=== PATIENT | female | born 1980 | race Caucasian/White ===

== ENCOUNTER 2017-09-19 17:09 | Inpatient (IN) | payer MEDICAID ==
[~2017-09-19] VITALS: Wt 72.0 kg
[~2017-09-19 17:09] MED LIST: KETAMINE 500 MG INJ ONE; PROPOFOL 200 MG INJ ONE
[2017-09-19] MEDS ORDERED: METHYLPREDNISOLONE 125 MG INJ IV STA (17:22)
[2017-09-19] MEDS ORDERED: DIPHENHYDRAMINE 50 MG INJ IV STA (17:22)
[2017-09-19] MEDS ORDERED: EPINEPHrine 1 MG INJ IM STA (17:22)
[2017-09-19] MEDS ORDERED: RACEPINEPHRINE 2.25%(NEB) 0.5 ML AMP ONE (17:24)
[2017-09-19] MEDS ORDERED: LIDOCAINE 4% (MPF) 5 ML INJ MT PRN (17:30)
[2017-09-19] MEDS ORDERED: FAMOTIDINE 20 MG INJ IV ONE (17:30)
[2017-09-19] MEDS ORDERED: RACEPINEPHRINE 2.25%(NEB) 0.5 ML AMP HHN ONE (17:30)
[2017-09-19] MEDS ORDERED: SOD CHLORIDE 0.9% 250 ML IV ONE (17:31)
[2017-09-19 17:37] LABS: BASOPHILS % 0.3 % (0.0-2.0); EOSINOPHILS # 0.2 10^3/ul (0.0-0.5); EOSINOPHILS % 1.1 % (0.0-7.0); HEMATOCRIT 42.1 % (37.0-47.0); HEMOGLOBIN 14.8 g/dl (12.0-16.0); LYMPHOCYTES # 4.5 10^3/ul (0.8-2.9); LYMPHOCYTES % 31.9 % (15.0-51.0); MEAN CORPUSCULAR HEMOGLOBIN 30.1 pg (29.0-33.0); MEAN CORPUSCULAR HGB CONC 35.2 g/dl (32.0-37.0); MEAN CORPUSCULAR VOLUME 85.7 fl (82.0-101.0); MEAN PLATELET VOLUME 10.2 fl (7.4-10.4); MONOCYTE # 0.8 10^3/ul (0.3-0.9); MONOCYTES % 5.9 % (0.0-11.0); NEUTROPHIL # 8.6 10^3/ul (1.6-7.5); NEUTROPHILS % 60.6 % (39.0-77.0); PLATELET COUNT 254 10^3/UL (140-415); RED BLOOD COUNT 4.91 10^6/ul (4.20-5.40); RED CELL DISTRIBUTION WIDTH 11.7 % (11.5-14.5); WHITE BLOOD COUNT 14.2 10^3/ul (4.8-10.8)
[2017-09-19] MEDS ORDERED: PROPOFOL 100 ML ONE (17:47)
[2017-09-19] MEDS ORDERED: LORAZEPAM 2 MG INJ ONE (17:50)
[2017-09-19] MEDS ORDERED: MIDAZOLAM (DRIP) 50 mg/50 mL 50 ML IV STA (17:58)
[2017-09-19] MEDS ORDERED: PROPOFOL 100 ML IV STA (17:58)
[2017-09-19] MEDS ORDERED: NALOXONE (0.4 MG/ML) INJ IV ONE (18:00)
[2017-09-19] MEDS ORDERED: LIDOCAINE 2% (MDV) 20 ML INJ INJ ONE (18:00)
[2017-09-19] MEDS ORDERED: FENTAnyl 50 MCG/ML VIAL IV ONE (18:00)
[2017-09-19] MEDS ORDERED: MIDAZOLAM 1 MG/ML 5 ML INJ IV ONE (18:00)
[2017-09-19 18:02] LABS: ANION GAP 16 (8-16); BLOOD UREA NITROGEN 12 mg/dl (7-20); CALCIUM 9.3 mg/dl (8.4-10.2); CARBON DIOXIDE 24 mmol/L (21-31); CHLORIDE 107 mmol/L (97-110); CREATININE 0.92 mg/dl (0.44-1.00); GLUCOSE 107 mg/dl (70-220); SODIUM 144 mmol/L (135-144)
[2017-09-19 18:16] LABS: TROPONIN-I < 0.012 ng/ml (0.00-0.12)
--- NOTE | 2017-09-19 18:19 | RADRPT ---
PROCEDURE: XR Chest. CLINICAL INDICATION: Chest pain. TECHNIQUE: Single frontal view. COMPARISON: None. FINDINGS: The endotracheal tube is in satisfactory position with the tip 3 cm above the luis. There is mild left basilar atelectasis. The lungs are otherwise clear. The heart size is normal. There is no pleural effusion. There is no pneumothorax. IMPRESSION: 1. Endotracheal tube in satisfactory position. 2. Left basilar atelectasis. 3. Otherwise normal chest x-ray. RPTAT: QQ .Mark Beal MD, MD Date Time Electronically viewed and signed by .Mark Beal MD, on 09/19/2017 18:19 .R/
--- NOTE | 2017-09-19 19:13 | ERD ---
ER Documentation Chief Complaint Chief Complaint SUDDEN ONSET SWELLING OF TONGUE AND STRIDOR AND EXCESSIVE DROOLING. HPI This is a 36-year-old female who presents to the emergency room for evaluation of tongue swelling, shortness of breath and drooling. This patient is unable to give a detailed history secondary to her clinical condition at this time. According to the patient's who is with her this patient has had this happen in the past and has had relief with steroids. The patient denies being on any LIA inhibitors at this time. This patient again cannot give a detailed history secondary to her distress. ROS All systems reviewed and are negative except as per history of present illness. Allergies Allergies: Coded Allergies: aspirin (Verified Allergy, rash, 09/13/13) Uncoded Allergies: NOVACAINE (Allergy, rash, 09/13/13) PMhx/Soc History of Surgery: Yes (oral surgery and bone replacement ) Anesthesia Reaction: No Hx Neurological Disorder: No Hx Respiratory Disorders: No Hx Cardiac Disorders: No Hx Psychiatric Problems: No Hx Miscellaneous Medical Probl: Yes (allergic rxn x 2 to unk meds ) Hx Alcohol Use: No Hx Substance Use: No Hx Tobacco Use: No Smoking Status: Never smoker Physical Exam Vitals Vital Signs Date Time Temp Pulse Resp B/P Pulse Ox O2 Delivery O2 Flow Rate FiO2 09/19/17 18:15 90 16 103/66 100 Mechanical Ventilator 09/19/17 18:00 84 16 92/75 100 Mechanical Ventilator 09/19/17 17:45 94 18 163/98 100 High Flow 10.0 09/19/17 17:45 87 16 100 100 09/19/17 17:35 96 20 149/98 100 High Flow 10.0 09/19/17 17:25 102 20 180/167 100 High Flow 10.0 09/19/17 17:20 Non Rebreather 10 09/19/17 17:20 97.0 101 20 152/105 100 Physical Exam INITIAL VITAL SIGNS: Reviewed by me, appears to be in severe distress, posturing , drooling HEENT: Severe macroglossia, unable to visualize oropharynx, pupils equal, round , and reactive to light. EOMI. There is no scleral icterus. NECK: C-spine is soft and supple, there is no meningismus. There is no cervical lymphadenopathy. LUNGS: Clear to auscultation bilaterally. There are no rales, wheezes or rhonchi. HEART: Tachycardic, no murmurs, clicks, rubs or gallops. ABDOMEN: Soft, non-tender, non-distended. There are bowel sounds in all four quadrants. No rebound or guarding. EXTREMITIES: There is no peripheral cyanosis or edema. No focal swelling or erythema. NEUROLOGICAL: The patient moves all four extremities with 5/5 strength. Cranial nerves II - XII are intact. Normal gait. Alert and oriented SKIN: There is no apparent rash or petechiae. HEME/LYMPHATIC: There is no evidence of excessive bruising or lymphedema. PSYCHIATRIC: The patient does not appear anxious or depressed. Result Diagram: 09/19/17172909/19/171729 Results 24 hrs Laboratory Tests Test 09/19/17 17:30 White Blood Count 14.210^3/ul Red Blood Count 4.9110^6/ul Hemoglobin 14.8g/dl Hematocrit 42.1% Mean Corpuscular Volume 85.7fl Mean Corpuscular Hemoglobin 30.1pg Mean Corpuscular Hemoglobin Concent 35.2g/dl Red Cell Distribution Width 11.7% Platelet Count 83195^3/UL Mean Platelet Volume 10.2fl Neutrophils % 60.6% Lymphocytes % 31.9% Monocytes % 5.9% Eosinophils % 1.1% Basophils % 0.3% Nucleated Red Blood Cells % 0.0/100WBC Neutrophils # 8.610^3/ul Lymphocytes # 4.510^3/ul Monocytes # 0.810^3/ul Eosinophils # 0.210^3/ul Basophils # 0.010^3/ul Nucleated Red Blood Cells # 0.010^3/ul Sodium Level 144mmol/L Potassium Level 3.0mmol/L Chloride Level 107mmol/L Carbon Dioxide Level 24mmol/L Anion Gap 16 Blood Urea Nitrogen 12mg/dl Creatinine 0.92mg/dl Glucose Level 107mg/dl Calcium Level 9.3mg/dl Troponin I < 0.012ng/ml Current Medications Medications (Trade) Dose Ordered Sig/Judy Route PRN Reason Start Time Stop Time Status Last Admin Dose Admin Famotidine (Pepcid Iv) 20 mg ONCE ONCE IV 09/19/17 17:30 09/19/17 17:31 DC 09/19/17 18:19 Diphenhydramine HCl (Benadryl) 25 mg ONCE STAT IV 09/19/17 17:22 09/19/17 17:23 DC 09/19/17 17:22 Epinephrine (EPINEPHrine) 0.3 mg ONCE STAT IM 09/19/17 17:22 09/19/17 17:23 DC 09/19/17 17:22 Methylprednisolone Sodium Succinate (Solu-Medrol) 125 mg ONCE STAT IV 09/19/17 17:22 09/19/17 17:23 DC 09/19/17 17:22 Epinephrine (Racepinephrine 2.25% (Neb)) 0.5 ml ONCE ONCE HHN 09/19/17 17:30 09/19/17 17:31 DC 09/19/17 18:22 Epinephrine (Racepinephrine 2.25% (Neb)) 0.5 ml STK-MED ONCE .ROUTE 09/19/17 17:24 09/19/17 17:25 DC Lidocaine 5 ml 5 ml PRN PRN MT OTHER 09/19/17 17:30 Sodium Chloride (NS) 250 ml @ 0 mls/hr Q0M ONCE IV 09/19/17 17:31 09/19/17 17:33 DC Midazolam HCl (Versed) 5 mg ONCE ONCE IV 09/19/17 18:00 09/19/17 18:01 DC 09/19/17 18:00 Naloxone HCl (Narcan) 0.4 mg ONCE ONCE IV 09/19/17 18:00 09/19/17 18:01 DC Fentanyl (Sublimaze) 100 mcg ONCE ONCE IV 09/19/17 18:00 09/19/17 18:01 DC 09/19/17 17:40 Lidocaine 20 ml 20 ml ONCE ONCE INJ 09/19/17 18:00 09/19/17 18:01 DC Propofol (Diprivan) 100 ml @ ud STK-MED ONCE .ROUTE 09/19/17 17:47 09/19/17 17:48 DC Lorazepam 2 mg 2 mg STK-MED ONCE .ROUTE 09/19/17 17:50 09/19/17 17:51 DC Propofol 100 ml @ 2.16 mls/hr ONCE STAT IV 09/19/17 17:58 09/21/17 16:15 09/19/17 18:17 Midazolam HCl (Versed) 50 ml @ 3 mls/hr ONCE STAT IV 09/19/17 17:58 09/20/17 10:37 09/19/17 17:58 Procedures/MDM Chest X-ray 1V Interpreted by me: Soft Tissue: No acute abnormalities Bones: No acute abnormalities Mediastinum/Cardiac Silhouette/Lungs: ET tube in place] EKG: Rate/Rhythm: [Normal Sinus Rhythm] QRS, ST, T-waves: [No changes consistent w/ acute ischemia] Impression: [No evidence of ischemia or arrhythmia] This 36-year-old female presents to the emergency room for evaluation of tongue swelling. When I evaluated this patient she was in severe distress, she was posturing, she was drooling. I immediately paged for anesthesiology overhead. The patient was given 0.3 mg intramuscular of epinephrine, she was given a Medrol, Pepcid, Benadryl. Anesthesiology is at bedside and wanted ENT to be consulted at bedside as well prior to fiberoptic intubation. I did call ENT Dr. Amador who was visiting the procedure. I then called pediatric ENT Dr. Gonzalez who agreed to come into the emergency room. Prior to the arrival of Dr. Gonzalez I did speak with Dr. SAE Mcdonough who is our general surgeon on-call and he agreed to be at bedside for emergent cricothyroidotomy if needed. This patient was intubated easily by anesthesia. She was then sedated with propofol and Versed. The patient will be given FFP at this time however given her critical condition she will be placed in the intensive care unit. Dr. Gonzalez did show up at bedside after this patient was intubated and he is aware of this patient. Critical Care: Excluding all billable procedures Time: 64 minutes Treatments/Evaluations: Close monitoring and treatment of unstable vital signs, cardiorespiratory, and neurologic status, while maintaining tight balance of fluid, respiratory, and cardiac interventions. Departure Diagnosis: Primary Impression: Angioedema Additional Impressions: Acute respiratory failure Acute anaphylaxis Shortness of breath Condition: Critical STEFFANY BARAHONA DO Sep 19, 2017 19:13
[2017-09-19 19:14] LABS: AADO2 Arterial 259.6 mmHg (7.0-24.0); Allen Test ACCEPTAB; Arterial Base Excess -4.2 mmol/L (-3.0-3); Arterial COHb 0.3 % (0.0-3.0); Arterial Fraction of Oxyhgb 98.4 % (93.0-99.0); Arterial HCO3 20.5 mmol/L (22.0-26.0); Arterial MetHb 0.4 % (0.0-1.5); MODE VENT - AC
--- NOTE | 2017-09-19 19:21 | HP ---
Date/Time of Note Date/Time of Note DATE: 09/19/17 TIME: 19:16 Assessment/Plan VTE Prophylaxis VTE Prophylaxis Intervention: SCD's Lines/Catheters IV Catheter Type (from Nrsg): Saline Lock Assessment/Plan Assessment/Plan 36 yo F with previous episodes of angioedema presented with severe angioedema requiring emergency intubation for airway protection. No evidence of anaphylactic shock as BP ok PLAN -admit to ICU as pt still intubated -cont steroids, H1 randy and H2 randy therapy started by the ER -check c4 level as none on file, check c1 and c1q as well -as pt not on acei at home, no compelling indication for consideration of bradykinin inhibitor Critical care time: 45 minutes HPI/ROS Admit Date/Time Admit Date/Time Hx of Present Illness CC: tongue swelling (of note, pt already intubated and sedated at time of my eval thus all info from chart) HPI 36 yo F with hx of previous episodes of angioedema presented with tongue swelling/angioedema. It progressed so quickly in the ER that pt required fiberoptic nasal intubation. unable to obtain additional pmhx/pshx/soc hx/fam hx/meds/all/ros from pt PMH/Family/Social Social History Smoking Status: Never smoker Exam/Review of Systems Vital Signs Vitals Vital Signs Date Time Temp Pulse Resp B/P Pulse Ox O2 Delivery O2 Flow Rate FiO2 09/19/17 18:30 87 20 108/66 99 Mechanical Ventilator 09/19/17 17:45 10.0 09/19/17 17:45 100 09/19/17 17:20 97.0 Exam Exam laying in bed, nasally intubated mmm marked tongue swelling noted no mrg lungs clear abd soft no rashes/hives/urticaria noted no edema labs and imaging reviewed Labs Result Diagram: 09/19/17 1730 09/19/17 1730 Medications Medications Current Medications Lidocaine (Xylocaine 4% (Mpf)) 5 ml PRN PRN MT OTHER; Start 09/19/17 at 17:30 ASHLEY SALINAS MD Sep 19, 2017 19:20
[2017-09-19] MEDS ORDERED: morphine 2 MG INJ IV PRN (19:30)
[2017-09-19] MEDS ORDERED: ALBUTEROL 18 GM INHALER INH PRN (19:30)
[2017-09-19] MEDS ORDERED: IPRATROPIUM (HFA) 12.9 GM INHALER INH PRN (19:30)
[2017-09-19] MEDS ORDERED: ACETAMINOPHEN 650MG/20.3ML CUP PO PRN (19:30)
[2017-09-19] MEDS ORDERED: DIPHENHYDRAMINE 50 MG INJ IV SCH (19:30)
[2017-09-19] MEDS ORDERED: HYDROCODONE/APAP (5/325) TAB PO PRN (19:30)
[2017-09-19] MEDS: DIPHENHYDRAMINE 50 MG INJ IV SCH (19:59)
[2017-09-19] MEDS: FAMOTIDINE 20 MG INJ IV SCH (19:59)
[2017-09-19] MEDS: METHYLPREDNISOLONE 125 MG INJ IV SCH (19:59)
[2017-09-19] MEDS ORDERED: SIMV10TA PO (20:32)
[2017-09-19] MEDS ORDERED: LISI10TA2 PO (20:32)
[2017-09-19] MEDS ORDERED: FAMOTIDINE 20 MG TAB PO SCH (21:00)
[2017-09-19 22:25] LABS: CK-MB 0.32 ng/ml (0.0-2.4); TROPONIN-I 0.036 ng/ml (0.00-0.12)
[2017-09-20] VITALS (54 sets, daily range): BP systolic 95–170; BP diastolic 57–137; PULSE 51–96; RESP 12–21; TEMP 97
[2017-09-20] MEDS: DIPHENHYDRAMINE 50 MG INJ IV SCH ×4 (02:46→20:16)
[2017-09-20] MEDS: METHYLPREDNISOLONE 125 MG INJ IV SCH ×3 (02:47→20:15)
[2017-09-20] MEDS: MIDAZOLAM (DRIP) 50 mg/50 mL 50 ML IV SCH ×2 (04:52→10:12)
[2017-09-20] MEDS: LORAZEPAM 2 MG INJ IV PRN ×2 (04:52→19:41)
[2017-09-20 06:42] LABS: ABNORMAL IP MESSAGE 1; BASOPHILS % 0.1 % (0.0-2.0); EOSINOPHILS % 0.1 % (0.0-7.0); HEMATOCRIT 38.9 % (37.0-47.0); HEMOGLOBIN 13.3 g/dl (12.0-16.0); LYMPHOCYTES # 0.6 10^3/ul (0.8-2.9); LYMPHOCYTES % 5.8 % (15.0-51.0); MEAN CORPUSCULAR HEMOGLOBIN 30.5 pg (29.0-33.0); MEAN CORPUSCULAR HGB CONC 34.2 g/dl (32.0-37.0); MEAN CORPUSCULAR VOLUME 89.2 fl (82.0-101.0); MONOCYTE # 0.1 10^3/ul (0.3-0.9); MONOCYTES % 0.5 % (0.0-11.0); NEUTROPHIL # 9.3 10^3/ul (1.6-7.5); NEUTROPHILS % 93.1 % (39.0-77.0); RED BLOOD COUNT 4.36 10^6/ul (4.20-5.40); RED CELL DISTRIBUTION WIDTH 11.9 % (11.5-14.5)
[2017-09-20 06:45] LABS: PLATELET COUNT 167 10^3/UL (140-415); POSITIVE DIFF @See below
[2017-09-20 07:20] LABS: CK-MB 0.57 ng/ml (0.0-2.4); TROPONIN-I 0.034 ng/ml (0.00-0.12)
[2017-09-20] MEDS: PROPOFOL 100 ML IV SCH ×4 (07:27→23:58)
[2017-09-20] MEDS ORDERED: POTASSIUM CHLORIDE 250 ML IVPB ONE (08:30)
[2017-09-20] MEDS: FAMOTIDINE 20 MG INJ IV SCH ×2 (09:53→20:17)
[2017-09-20] MEDS: ENOXAPARIN 40 MG/0.4 ML SYG SC SCH (09:56)
[2017-09-20 10:11] LABS: COMPLEMENT C3 113 mg/dl (88-165); COMPLEMENT C4 25 mg/dl (14-44)
--- NOTE | 2017-09-20 11:19 | PN ---
Date/Time of Note Date/Time of Note DATE: 09/20/17 TIME: :17 Assessment/Plan VTE Prophylaxis VTE Prophylaxis Intervention: SCD's Lines/Catheters IV Catheter Type (from Nrsg): Peripheral IV Urinary Cath still in place: Yes Reason Cath still needed: other (indicate) (critically ill) Assessment/Plan Assessment/Plan 36 yo F with previous episodes of angioedema presented with severe angioedema requiring emergency intubation for airway protection. Remains intubated in the ICU PLAN -extubation as per pulm -cont steroids, H1 randy and H2 randy therapy started by the ER -c4 level wnl check c1 and c1q as well -as pt not on acei at home, no compelling indication for consideration of bradykinin inhibitor -correction to H and P. Concern this episode was triggered by NSAID v PCN agent critical care time: 30 minutes Subjective 24 Hr Interval Summary Free Text/Dictation tongue less swollen Exam/Review of Systems Vital Signs Vitals Vital Signs Date Time Temp Pulse Resp B/P Pulse Ox O2 Delivery O2 Flow Rate FiO2 09/20/17 10:30 84 19 157/81 100 Mechanical Ventilator 09/20/17 09:31 40 09/20/17 08:00 97.5 09/20/17 00:13 10.0 Intake and Output 09/19/17 09/19/17 09/20/17 15:00 23:00 07:00 Intake Total 350 ml 149.76 ml Output Total 1300 ml Balance 350 ml -1150.24 ml Exam intubated and sedated tongue less swollen no mrg lungs clear abd soft no rashes/urticaria Results Result Diagram: 09/20/17 0515 09/19/17 7090 Results 24 hrs Laboratory Tests Test 09/19/17 17:30 09/19/17 19:05 09/19/17 20:00 09/20/17 05:15 White Blood Count 14.2 H 10.0 # Red Blood Count 4.91 4.36 Hemoglobin 14.8 13.3 Hematocrit 42.1 38.9 Mean Corpuscular Volume 85.7 89.2 Mean Corpuscular Hemoglobin 30.1 30.5 Mean Corpuscular Hemoglobin Concent 35.2 34.2 Red Cell Distribution Width 11.7 11.9 Platelet Count 254 167 # Mean Platelet Volume 10.2 11.0 H Neutrophils % 60.6 93.1 H Lymphocytes % 31.9 5.8 L Monocytes % 5.9 0.5 Eosinophils % 1.1 0.1 Basophils % 0.3 0.1 Nucleated Red Blood Cells % 0.0 0.0 Neutrophils # 8.6 H 9.3 H Lymphocytes # 4.5 H 0.6 L Monocytes # 0.8 0.1 L Eosinophils # 0.2 0.0 Basophils # 0.0 0.0 Nucleated Red Blood Cells # 0.0 0.0 Sodium Level 144 Potassium Level 3.0 L Chloride Level 107 Carbon Dioxide Level 24 Anion Gap 16 Blood Urea Nitrogen 12 Creatinine 0.92 Glucose Level 107 Calcium Level 9.3 Troponin I < 0.012 0.036 0.034 Blood Gas Specimen Source Blood arterial Arterial Blood Date Drawn 09/19/2017 7:00:17 PM Arterial Blood pH (Temp corrected) 7.366 Arterial Blood pCO2 (Temp correct) 36.6 Arterial Blood pO2 (Temp corrected) 416.8 H Arterial Blood HCO3 20.5 L Arterial Blood Base Excess -4.2 L Arterial Blood Oxygen Saturation 99.1 H Domingo Test ACCEPTAB Arterial Blood Gas Puncture Site Right Radial Arterial Blood Carboxyhemoglobin 0.3 Arterial Blood Methemoglobin 0.4 Blood Gas A-a O2 Differential 259.6 H Oxyhemoglobin Percent 98.4 Total Hemoglobin 14.0 Blood Gas Temperature 37.0 Blood Gas Respiration Rate 16.0 Blood Gas Actual Respiration Rate 19 Blood Gas Modality VENT - AC FiO2 100.0 Blood Gas Tidal Volume 450.0 Blood Gas Low PEEP Setting 5.0 Blood Gas Notified Whom MA Blood Gas Notified Time 09/19/2017 7:13:53 PM Creatine Kinase 71 85 Creatine Kinase Index 0.5 0.7 Creatinine Kinase MB (Mass) 0.32 0.57 Test 09/20/17 05:16 Complement C3 113 Complement C4 25 Medications Medications Current Medications Lidocaine (Xylocaine 4% (Mpf)) 5 ml PRN PRN MT OTHER; Start 09/19/17 at 17:30 Acetaminophen (Tylenol Liquid) 650 mg Q6H PRN PO PAIN LEVEL 1-3 OR FEVER; Start 09/19/17 at 19:30 Acetaminophen/ Hydrocodone Bitart ([place] (5/325)) 1 tab Q6H PRN PO PAIN LEVEL 4 -6; Start 09/19/17 at 19:30 Morphine Sulfate (morphine) 2 mg Q4H PRN IV PAIN LEVEL 7-10; Start 09/19/17 at 19:30 Enoxaparin Sodium (Lovenox) 40 mg DAILY SC Last administered on 09/20/17 09: 56; Admin Dose 40 MG; Start 09/20/17 at 09:00 Methylprednisolone Sodium Succinate (Solu-Medrol) 80 mg Q8H IV Last administered on 09/20/17 02:47; Admin Dose 80 MG; Start 09/19/17 at 19:30 Famotidine (Pepcid Iv) 20 mg Q12H IV Last administered on 09/20/17 09:53; Admin Dose 20 MG; Start 09/19/17 at 19:30 Diphenhydramine HCl (Benadryl) 25 mg Q6H IV Last administered on 09/20/17 09: 53; Admin Dose 25 MG; Start 09/19/17 at 19:30 Lorazepam 2 mg 2 mg Q4H PRN IV Agitation Last administered on 09/20/17 04:52 ; Admin Dose 2 MG; Start 09/20/17 at 03:00 Potassium Chloride (KCl 40 MEQ/250 ML NS) 250 ml @ 62.5 mls/hr ONCE ONCE IVPB Last administered on 09/20/17 09:54; Admin Dose 62.5 MLS/HR; Start at 08:30; Stop 09/20/17 at 12:29 ASHLEY SALINAS MD Sep 20, 2017 11:19
[2017-09-20] MEDS ORDERED: FENTAnyl (DRIP) 1000 mcg/100mL 100 ML IV SCH (15:00)
[2017-09-21] VITALS (36 sets, daily range): BP systolic 100–142; BP diastolic 57–104; PULSE 43–95; RESP 10–24
[2017-09-21] MEDS: DIPHENHYDRAMINE 50 MG INJ IV SCH ×4 (01:39→18:40)
[2017-09-21] MEDS: PROPOFOL 100 ML IV SCH ×2 (03:48→11:55)
[2017-09-21] MEDS: METHYLPREDNISOLONE 125 MG INJ IV SCH ×3 (03:50→18:40)
--- NOTE | 2017-09-21 04:41 | CONS ---
DATE OF ADMISSION: 09/19/2017 DATE OF CONSULTATION: 09/20/2017 PULMONARY CONSULTATION PRIMARY PHYSICIAN: Dr. Saxena REASON FOR CONSULTATION: Respiratory failure. HISTORY OF PRESENT ILLNESS: Briefly, this is a 36-year-old female with a history of prior episodes of angioedema without a clear etiology, who presented last night to the emergency department with to ngue swelling, shortness of breath and drooling. At that point, in view of her respiratory distress associated with her upper airway edema, patient underwent nasotracheal intubation and was provided systemic steroids, H1 and H2 blockers, fresh frozen plasma and sedated on mechanical ventilation and transferred to the ICU. Today, she remains on the ventilator and on sedation. PAST MEDICAL HISTORY: As stated above. ALLERGIES: UNCLEAR IF SHE HAS A HISTORY OF ALLERGY TO NONSTEROIDALS OR PENICILLIN. SOCIAL HISTORY: No tobacco, alcohol or illicit drug use. FAMILY HISTORY: Noncontributory. REVIEW OF SYSTEMS: Unable to obtain. PHYSICAL EXAMINATION: VITAL SIGNS: Heart rate is 85, blood pressure 157/81, oxygen saturation 100% on 30% FIO2 on the stefan tilator. HEENT: There appears to be some lip and tongue swelling noted on examination, although ET tube make s complete examination of the oropharynx somewhat difficult. NECK: Supple. No thyromegaly. CARDIOVASCULAR: Regular rate and rhythm, S1, S2. No murmurs, rubs or gallops. LUNGS: Clear to auscultation. ABDOMEN: Soft, nontender. No hepatosplenomegaly. EXTREMITIES: No cyanosis, clubbing or edema. SKIN: There is no evidence of any urticaria or rashes noted. LABORATORY DATA: ABG: pH 7.37, PaCO2 is 37, pO2 is 417, BUN is 12, creatinine is 0.72. Troponin i s negative. C3 level is 113. C4 level is 25. Chest x-ray is within normal limits. IMPRESSION: Respiratory failure secondary to severe angioedema. The etiology of her angioedema is somewhat unclear as to whether this represents histamine mediated response versus one that is mast c ell mediated. Obviously, acquired C1 inhibitor deficiency may also be considered, although more com mon in older individuals. RECOMMENDATIONS: 1. Ventilatory support for now. 2. We will assess cuff leak test on a daily basis, as well as examination of the oropharynx to dete rmine candidacy for weaning and extubation. 3. Obtain CRP and sed rate. The normal C4 levels argue somewhat against an acquired C1 inhibitor d eficiency. 4. Would continue H1 and H2 blockers and corticosteroids for the time being. 5. The patient has already received fresh frozen plasma and there is no obvious evidence of C1 inhi bitor deficiency at this time. 6. DVT and gastrointestinal prophylaxis. Dictated By: MYRNA RAE MD NK/NTS Conf#: [id number] DID#: [id number] CC: ASHLEY SAXENA MD; MARIELA DENNISON MD;*[facility]*
[2017-09-21 06:08] LABS: BASOPHILS % 0.1 % (0.0-2.0); HEMATOCRIT 36.2 % (37.0-47.0); HEMOGLOBIN 12.3 g/dl (12.0-16.0); LYMPHOCYTES # 0.7 10^3/ul (0.8-2.9); LYMPHOCYTES % 3.8 % (15.0-51.0); MEAN CORPUSCULAR HEMOGLOBIN 30.1 pg (29.0-33.0); MEAN CORPUSCULAR VOLUME 88.7 fl (82.0-101.0); MONOCYTE # 0.7 10^3/ul (0.3-0.9); MONOCYTES % 3.9 % (0.0-11.0); NEUTROPHIL # 15.9 10^3/ul (1.6-7.5); NEUTROPHILS % 91.6 % (39.0-77.0); PLATELET COUNT 229 10^3/UL (140-415); RED BLOOD COUNT 4.08 10^6/ul (4.20-5.40); RED CELL DISTRIBUTION WIDTH 12.1 % (11.5-14.5); WHITE BLOOD COUNT 17.3 10^3/ul (4.8-10.8)
[2017-09-21 06:25] LABS: ALBUMIN 3.7 g/dl (3.3-4.9); ALBUMIN/GLOBULIN RATIO 1.19; BILIRUBIN,INDIRECT 0.1 mg/dl (0-1.1); BILIRUBIN,TOTAL 0.1 mg/dl (0.2-1.3); C-REACTIVE PROTEIN 1.1 mg/dl (0.0-0.9); CALCIUM 8.6 mg/dl (8.4-10.2); CREATININE 0.77 mg/dl (0.44-1.00); TOTAL PROTEIN 6.8 g/dl (6.1-8.1)
[2017-09-21 06:41] LABS: Allen Test ACCEPTAB; Arterial Base Excess 0.5 mmol/L (-3.0-3); Arterial COHb 0.1 % (0.0-3.0); Arterial Fraction of Oxyhgb 97.5 % (93.0-99.0); Arterial HCO3 24.5 mmol/L (22.0-26.0); Arterial MetHb 0.3 % (0.0-1.5); Arterial Total Hemglobin 13.1 g/dl (12.0-18.0); MODE VENT - AC
[2017-09-21] MEDS: FAMOTIDINE 20 MG INJ IV SCH ×2 (07:05→18:40)
--- NOTE | 2017-09-21 07:09 | RADRPT ---
PROCEDURE: XR Chest. CLINICAL INDICATION: Shortness of breath. TECHNIQUE: Single frontal view. COMPARISON: 09/19/2017. FINDINGS: The endotracheal tube should be advanced approximately 2 cm as the tip is at the level of the upper clavicle heads and 5 cm above the luis. There is left basilar atelectasis, unchanged. The lungs ar e otherwise clear. The heart size is normal. There is no pleural effusion. There is no pneumothorax. IMPRESSION: 1. Endotracheal tube should be advanced approximately 2 cm. 2. Left basilar atelectasis. 3. Otherwise unremarkable chest radiograph. RPTAT: QQ .Mark Beal MD, MD Date Time Electronically viewed and signed by .Mark Beal MD, MD on 09/21/2017 07:09 .R/
[2017-09-21] MEDS: LORAZEPAM 2 MG INJ IV PRN (08:53)
[2017-09-21] MEDS: ENOXAPARIN 40 MG/0.4 ML SYG SC SCH (09:00)
--- NOTE | 2017-09-21 13:51 | PN ---
Date/Time of Note Date/Time of Note DATE: 09/21/17 TIME: 13:50 Assessment/Plan VTE Prophylaxis VTE Prophylaxis Intervention: SCD's Lines/Catheters IV Catheter Type (from Nrsg): Peripheral IV Urinary Cath still in place: Yes Reason Cath still needed: other (indicate) (critically ill) Assessment/Plan Assessment/Plan 36 yo F with previous episodes of angioedema presented with severe angioedema requiring emergency intubation for airway protection. Remains intubated in the ICU PLAN -extubation as per pulm -cont steroids, H1 randy and H2 randy therapy started by the ER -c4 level wn; c1 and c1 in process -as pt not on acei at home, no compelling indication for consideration of bradykinin inhibitor -Re etio, given recent meds hx as outpatient, Concern this episode was triggered by NSAID v PCN agent critical care time: 30 minutes Subjective 24 Hr Interval Summary Free Text/Dictation tongue swelling continues to improve Exam/Review of Systems Vital Signs Vitals Vital Signs Date Time Temp Pulse Resp B/P Pulse Ox O2 Delivery O2 Flow Rate FiO2 09/21/17 12:00 98.3 47 14 103/77 100 Mechanical Ventilator 09/21/17 11:30 30 09/20/17 00:13 10.0 Intake and Output 09/20/17 09/20/17 09/21/17 15:00 23:00 07:00 Intake Total 479.16 ml 144.35 ml 209.5 ml Output Total 1050 ml 295 ml 320 ml Balance -570.84 ml -150.65 ml -110.5 ml Exam tongue less swollen, still nasally intubated no mrg lungs clear abd soft no rashes Results Result Diagram: 09/21/17 0458 09/21/17 0458 Results 24 hrs Laboratory Tests Test 09/21/17 04:58 09/21/17 05:00 White Blood Count 17.3 #H Red Blood Count 4.08 L Hemoglobin 12.3 Hematocrit 36.2 L Mean Corpuscular Volume 88.7 Mean Corpuscular Hemoglobin 30.1 Mean Corpuscular Hemoglobin Concent 34.0 Red Cell Distribution Width 12.1 Platelet Count 229 # Mean Platelet Volume 11.0 H Neutrophils % 91.6 H Lymphocytes % 3.8 L Monocytes % 3.9 Eosinophils % 0.0 Basophils % 0.1 Nucleated Red Blood Cells % 0.0 Neutrophils # 15.9 H Lymphocytes # 0.7 L Monocytes # 0.7 Eosinophils # 0.0 Basophils # 0.0 Nucleated Red Blood Cells # 0.0 Erythrocyte Sedimentation Rate 9 Sodium Level 145 H Potassium Level 4.0 Chloride Level 112 H Carbon Dioxide Level 24 Anion Gap 13 Blood Urea Nitrogen 17 Creatinine 0.77 Glucose Level 127 Lactic Acid Level 1.4 Calcium Level 8.6 Total Bilirubin 0.1 L Direct Bilirubin 0.00 Indirect Bilirubin 0.1 Aspartate Amino Transf (AST/SGOT) 16 Alanine Aminotransferase (ALT/SGPT) 30 Alkaline Phosphatase 55 C-Reactive Protein 1.1 H Total Protein 6.8 Albumin 3.7 Globulin 3.10 Albumin/Globulin Ratio 1.19 Blood Gas Specimen Source Blood arterial Arterial Blood Date Drawn 09/21/2017 5:04:44 AM Arterial Blood pH (Temp corrected) 7.435 Arterial Blood pCO2 (Temp correct) 37.4 Arterial Blood pO2 (Temp corrected) 106.0 H Arterial Blood HCO3 24.5 Arterial Blood Base Excess 0.5 Arterial Blood Oxygen Saturation 97.9 Domingo Test ACCEPTAB Arterial Blood Gas Puncture Site Right Radial Arterial Blood Carboxyhemoglobin 0.1 Arterial Blood Methemoglobin 0.3 Blood Gas A-a O2 Differential 64.0 H Oxyhemoglobin Percent 97.5 Total Hemoglobin 13.1 Blood Gas Temperature 37.0 Blood Gas Respiration Rate 12.0 Blood Gas Actual Respiration Rate 14 Blood Gas Modality VENT - AC FiO2 30.0 Blood Gas Tidal Volume 500.0 Blood Gas Low PEEP Setting 5.0 Blood Gas Inspiratory Pressure 24.0 Blood Gas Notified Whom MM Blood Gas Notified Time 09/21/2017 5:24:57 AM Medications Medications Current Medications Lidocaine (Xylocaine 4% (Mpf)) 5 ml PRN PRN MT OTHER; Start 09/19/17 at 17:30 Acetaminophen (Tylenol Liquid) 650 mg Q6H PRN PO PAIN LEVEL 1-3 OR FEVER; Start 09/19/17 at 19:30 Acetaminophen/ Hydrocodone Bitart ([place] (5/325)) 1 tab Q6H PRN PO PAIN LEVEL 4 -6; Start 09/19/17 at 19:30 Morphine Sulfate (morphine) 2 mg Q4H PRN IV PAIN LEVEL 7-10; Start 09/19/17 at 19:30 Enoxaparin Sodium (Lovenox) 40 mg DAILY SC Last administered on 09/21/17t 09: 00; Admin Dose 40 MG; Start 09/20/17 at 09:00 Methylprednisolone Sodium Succinate (Solu-Medrol) 80 mg Q8H IV Last administered on 09/21/17 11:55; Admin Dose 80 MG; Start 09/19/17 at 19:30 Famotidine (Pepcid Iv) 20 mg Q12H IV Last administered on 09/21/17 07:05; Admin Dose 20 MG; Start 09/19/17 at 19:30 Diphenhydramine HCl (Benadryl) 25 mg Q6H IV Last administered on 09/21/17 13: 00; Admin Dose 25 MG; Start 09/19/17 at 19:30 Lorazepam 2 mg 2 mg Q4H PRN IV Agitation Last administered on 09/21/17 08:53 ; Admin Dose 2 MG; Start 09/20/17 at 03:00 Fentanyl (Sublimaze) 100 ml @ 5 mls/hr TITRATE IV Last administered on 19:39; Admin Dose 2.5 MLS/HR; Start 09/20/17 at 15:00 ASHLEY SALINAS MD Sep 21, 2017 13:51
--- NOTE | 2017-09-21 14:09 | CONS ---
Date/Time of Note Date/Time of Note DATE: 09/21/17 TIME: 14:05 Consult Date/Type/Reason Admit Date/Time Sep 19, 2017 at 19:10 Initial Consult Date Type of Consultation: Pulm/CCM Subjective Awake and alert. Performed bedside cuff-leak test--> positive for significant leak. Objective Vital Signs Date Time Temp Pulse Resp B/P Pulse Ox O2 Delivery O2 Flow Rate FiO2 09/21/17 12:00 98.3 47 14 103/77 100 Mechanical Ventilator 09/21/17 11:30 30 09/20/17 00:13 10.0 Intake and Output 09/20/17 09/20/17 09/21/17 15:00 23:00 07:00 Intake Total 479.16 ml 144.35 ml 209.5 ml Output Total 1050 ml 295 ml 320 ml Balance -570.84 ml -150.65 ml -110.5 ml Exam HEENT: nasally intubated; no edema of tongue noted NECK: Supple. No thyromegaly. CARDIOVASCULAR: Regular rate and rhythm, S1, S2. No murmurs, rubs or gallops. LUNGS: Clear to auscultation. ABDOMEN: Soft, nontender. No hepatosplenomegaly. EXTREMITIES: No cyanosis, clubbing or edema. Results/Medications Result Diagram: 09/21/17 0458 09/21/17 0458 Results 24 hrs Laboratory Tests Test 09/21/17 04:58 09/21/17 05:00 White Blood Count 17.3 #H Red Blood Count 4.08 L Hemoglobin 12.3 Hematocrit 36.2 L Mean Corpuscular Volume 88.7 Mean Corpuscular Hemoglobin 30.1 Mean Corpuscular Hemoglobin Concent 34.0 Red Cell Distribution Width 12.1 Platelet Count 229 # Mean Platelet Volume 11.0 H Neutrophils % 91.6 H Lymphocytes % 3.8 L Monocytes % 3.9 Eosinophils % 0.0 Basophils % 0.1 Nucleated Red Blood Cells % 0.0 Neutrophils # 15.9 H Lymphocytes # 0.7 L Monocytes # 0.7 Eosinophils # 0.0 Basophils # 0.0 Nucleated Red Blood Cells # 0.0 Erythrocyte Sedimentation Rate 9 Sodium Level 145 H Potassium Level 4.0 Chloride Level 112 H Carbon Dioxide Level 24 Anion Gap 13 Blood Urea Nitrogen 17 Creatinine 0.77 Glucose Level 127 Lactic Acid Level 1.4 Calcium Level 8.6 Total Bilirubin 0.1 L Direct Bilirubin 0.00 Indirect Bilirubin 0.1 Aspartate Amino Transf (AST/SGOT) 16 Alanine Aminotransferase (ALT/SGPT) 30 Alkaline Phosphatase 55 C-Reactive Protein 1.1 H Total Protein 6.8 Albumin 3.7 Globulin 3.10 Albumin/Globulin Ratio 1.19 Blood Gas Specimen Source Blood arterial Arterial Blood Date Drawn 09/21/2017 5:04:44 AM Arterial Blood pH (Temp corrected) 7.435 Arterial Blood pCO2 (Temp correct) 37.4 Arterial Blood pO2 (Temp corrected) 106.0 H Arterial Blood HCO3 24.5 Arterial Blood Base Excess 0.5 Arterial Blood Oxygen Saturation 97.9 Domingo Test ACCEPTAB Arterial Blood Gas Puncture Site Right Radial Arterial Blood Carboxyhemoglobin 0.1 Arterial Blood Methemoglobin 0.3 Blood Gas A-a O2 Differential 64.0 H Oxyhemoglobin Percent 97.5 Total Hemoglobin 13.1 Blood Gas Temperature 37.0 Blood Gas Respiration Rate 12.0 Blood Gas Actual Respiration Rate 14 Blood Gas Modality VENT - AC FiO2 30.0 Blood Gas Tidal Volume 500.0 Blood Gas Low PEEP Setting 5.0 Blood Gas Inspiratory Pressure 24.0 Blood Gas Notified Whom MM Blood Gas Notified Time 09/21/2017 5:24:57 AM Medications Current Medications Lidocaine (Xylocaine 4% (Mpf)) 5 ml PRN PRN MT OTHER; Start 09/19/17 at 17:30 Acetaminophen (Tylenol Liquid) 650 mg Q6H PRN PO PAIN LEVEL 1-3 OR FEVER; Start 09/19/17 at 19:30 Acetaminophen/ Hydrocodone Bitart ([place]jun[place] (5/325)) 1 tab Q6H PRN PO PAIN LEVEL 4 -6; Start 09/19/17 at 19:30 Morphine Sulfate (morphine) 2 mg Q4H PRN IV PAIN LEVEL 7-10; Start 09/19/17 at 19:30 Enoxaparin Sodium (Lovenox) 40 mg DAILY SC Last administered on 09/21/17 09: 00; Admin Dose 40 MG; Start 09/20/17 at 09:00 Methylprednisolone Sodium Succinate (Solu-Medrol) 80 mg Q8H IV Last administered on 09/21/17 11:55; Admin Dose 80 MG; Start 09/19/17 at 19:30 Famotidine (Pepcid Iv) 20 mg Q12H IV Last administered on 09/21/17 07:05; Admin Dose 20 MG; Start 09/19/17 at 19:30 Diphenhydramine HCl (Benadryl) 25 mg Q6H IV Last administered on 09/21/17 13: 00; Admin Dose 25 MG; Start 09/19/17 at 19:30 Lorazepam 2 mg 2 mg Q4H PRN IV Agitation Last administered on 09/21/17 08:53 ; Admin Dose 2 MG; Start 09/20/17 at 03:00 Fentanyl (Sublimaze) 100 ml @ 5 mls/hr TITRATE IV Last administered on 19:39; Admin Dose 2.5 MLS/HR; Start 09/20/17 at 15:00 Assessment/Plan Additional Assessment/Plan IMPRESSION: 1. Respiratory failure secondary to severe angioedema. The etiology of her angioedema is somewhat unclear as to whether this represents histamine mediated response versus one that is mast cell mediated. Obviously, acquired C1 inhibitor deficiency may also be considered, although more common in older individuals. RECS: 1. Cuff leak test performed. Exhaled volumes dropped from 500 to < 100 with notable sound of a leak 2. Would continue H1 and H2 blockers and corticosteroids for the time being. 3. Will proceed to weaning to CPAP/PS and extubation 4. D/C sedation 35 min cc time MYRNA RAE MD Sep 21, 2017 14:09
[2017-09-21] MEDS ORDERED: RACEPINEPHRINE 2.25%(NEB) 0.5 ML AMP HHN PRN (15:30)
[2017-09-22] VITALS (19 sets, daily range): BP systolic 108–156; BP diastolic 71–100; PULSE 40–72; RESP 15–20
[2017-09-22] MEDS: DIPHENHYDRAMINE 50 MG INJ IV SCH ×3 (01:09→13:58)
[2017-09-22] MEDS: METHYLPREDNISOLONE 125 MG INJ IV SCH ×3 (04:01→20:14)
[2017-09-22] MEDS: FAMOTIDINE 20 MG INJ IV SCH ×2 (08:12→20:14)
[2017-09-22] MEDS: ENOXAPARIN 40 MG/0.4 ML SYG SC SCH (10:54)
--- NOTE | 2017-09-22 11:29 | PN ---
Date/Time of Note Date/Time of Note DATE: 09/22/17 TIME: 11:24 Assessment/Plan VTE Prophylaxis VTE Prophylaxis Intervention: LMWH Lines/Catheters IV Catheter Type (from Nrsg): Peripheral IV Urinary Cath still in place: Yes Reason Cath still needed: urinary retention Assessment/Plan Chief Complaint/Hosp Course Assessment/Plan: 36 yo F with previous episodes of angioedema presented with severe angioedema requiring emergency intubation for airway protection. PLAN -cont steroids, H1 randy and H2 randy therapy started by the ER -c4 level wn; c1 and c1 in process -follow these up -as pt not on acei at home, no compelling indication for consideration of bradykinin inhibitor -Re etio, given recent meds hx as outpatient, Concern this episode was triggered by NSAID v PCN agent -obviously avoid those agents now -We will get PT eval as well. Problems: Subjective 24 Hr Interval Summary Free Text/Dictation Pt out of ICU now, extubated, no acute events overnight. Per nursing staff, unsteady on her feet however. Exam/Review of Systems Vital Signs Vitals Vital Signs Date Time Temp Pulse Resp B/P Pulse Ox O2 Delivery O2 Flow Rate FiO2 09/22/17 08:30 68 09/22/17 07:47 98.0 18 108/71 97 09/22/17 06:00 Nasal Cannula 2.0 09/21/17 19:20 21 Intake and Output 09/21/17 09/21/17 09/22/17 15:00 23:00 07:00 Intake Total 94.00 ml 120 ml Output Total 345 ml 317 ml 259 ml Balance -251.00 ml -197 ml -259 ml Exam tongue less swollen, no acute events no mrg lungs clear abd soft no rashes Results Result Diagram: 09/21/17 0458 09/21/17 0458 Results 24 hrs Laboratory Tests Test 09/22/17 05:19 Lab Scanned Report BLOOD TRANSFUSION Medications Medications Current Medications Lidocaine (Xylocaine 4% (Mpf)) 5 ml PRN PRN MT OTHER; Start 09/19/17 at 17:30 Acetaminophen (Tylenol Liquid) 650 mg Q6H PRN PO PAIN LEVEL 1-3 OR FEVER; Start 09/19/17 at 19:30 Acetaminophen/ Hydrocodone Bitart ([place] (5/325)) 1 tab Q6H PRN PO PAIN LEVEL 4 -6; Start 09/19/17 at 19:30 Morphine Sulfate (morphine) 2 mg Q4H PRN IV PAIN LEVEL 7-10; Start 09/19/17 at 19:30 Enoxaparin Sodium (Lovenox) 40 mg DAILY SC Last administered on 09/22/17 10: 54; Admin Dose 40 MG; Start 09/20/17 at 09:00 Methylprednisolone Sodium Succinate (Solu-Medrol) 80 mg Q8H IV Last administered on 09/22/17 04:01; Admin Dose 80 MG; Start 09/19/17 at 19:30 Famotidine (Pepcid Iv) 20 mg Q12H IV Last administered on 09/22/17 08:12; Admin Dose 20 MG; Start 09/19/17 at 19:30 Diphenhydramine HCl (Benadryl) 25 mg Q6H IV Last administered on 09/22/17 08: 12; Admin Dose 25 MG; Start 09/19/17 at 19:30 Lorazepam (Ativan) 2 mg Q4H PRN IV Agitation Last administered on 09/21/17 08 :53; Admin Dose 2 MG; Start 09/20/17 at 03:00 AMEE MARTINS Sep 22, 2017 11:29
--- NOTE | 2017-09-22 14:55 | CONS ---
Date/Time of Note Date/Time of Note DATE: 09/22/17 TIME: 14:54 Consult Date/Type/Reason Admit Date/Time Sep 19, 2017 at 19:10 Initial Consult Date Type of Consultation: Pulm/CCM Subjective Patient comfortable this morning still has mild dyspnea. Objective Vital Signs Date Time Temp Pulse Resp B/P Pulse Ox O2 Delivery O2 Flow Rate FiO2 09/22/17 13:12 72 09/22/17 11:46 98.1 18 137/88 96 09/22/17 06:00 Nasal Cannula 2.0 09/21/17 19:20 21 Intake and Output 09/21/17 09/21/17 09/22/17 15:00 23:00 07:00 Intake Total 94.00 ml 120 ml Output Total 345 ml 317 ml 259 ml Balance -251.00 ml -197 ml -259 ml Exam GENERAL: VITAL SIGNS: per chart NECK: Supple. No JVD or lymphadenopathy. CARDIAC EXAM: S1, S2. No added sounds or murmurs. CHEST: clear bilaterally, No added sounds, rales or wheezes ABDOMEN: Soft, nontender. No guarding or rebound. EXTREMITIES: No cyanosis, clubbing or edema. NEUROLOGIC: Generalized weakness. No focal deficits. Results/Medications Result Diagram: 09/21/17 0458 09/21/17 0458 Results 24 hrs Laboratory Tests Test 09/22/17 05:19 Lab Scanned Report BLOOD TRANSFUSION Medications Current Medications Lidocaine (Xylocaine 4% (Mpf)) 5 ml PRN PRN MT OTHER; Start 09/19/17 at 17:30 Acetaminophen (Tylenol Liquid) 650 mg Q6H PRN PO PAIN LEVEL 1-3 OR FEVER Last administered on 09/22/17 13:57; Admin Dose 650 MG; Start 09/19/17 at 19:30 Acetaminophen/ Hydrocodone Bitart ([place]ahma (5/325)) 1 tab Q6H PRN PO PAIN LEVEL 4 -6; Start 09/19/17 at 19:30 Morphine Sulfate (morphine) 2 mg Q4H PRN IV PAIN LEVEL 7-10; Start 09/19/17 at 19:30 Enoxaparin Sodium (Lovenox) 40 mg DAILY SC Last administered on 09/22/17 10: 54; Admin Dose 40 MG; Start 09/20/17 at 09:00 Methylprednisolone Sodium Succinate (Solu-Medrol) 80 mg Q8H IV Last administered on 09/22/17 13:58; Admin Dose 80 MG; Start 09/19/17 at 19:30 Famotidine (Pepcid Iv) 20 mg Q12H IV Last administered on 09/22/17 08:12; Admin Dose 20 MG; Start 09/19/17 at 19:30 Lorazepam (Ativan) 2 mg Q4H PRN IV Agitation Last administered on 09/21/17 08 :53; Admin Dose 2 MG; Start 09/20/17 at 03:00 Influenza Virus Vaccine (Fluzone) 0.5 ml ONCE ONCE IM* ; Start 09/23/17 at 09: 00; Stop 09/23/17 at 09:01 Diphenhydramine HCl (Benadryl) 25 mg Q6H PO ; Start 09/22/17 at 14:30 Assessment/Plan Chief Complaint/Hosp Course IMPRESSION: 1. Respiratory failure secondary to severe angioedema. The etiology of her angioedema is somewhat unclear as to whether this represents histamine mediated response versus one that is mast cell mediated. Obviously, acquired C1 inhibitor deficiency may also be considered, although more common in older individuals. Now stable post extubation. RECS: 1. Continue antihistamines, supplemental O2 2. Would continue H1 and H2 blockers and corticosteroids for the time being. Anticipate discharge tomorrow. Consider EpiPen Problems: MARIELA DENNISON MD, [facility] Sep 22, 2017 14:55
[2017-09-22] MEDS: DIPHENHYDRAMINE 25 MG CAP PO SCH ×2 (16:22→20:15)
[2017-09-22] MEDS: LISINOPRIL 10 MG TAB PO SCH (20:29)
[2017-09-23] VITALS (11 sets, daily range): BP systolic 136–171; BP diastolic 81–96; PULSE 40–98; RESP 18–20
[2017-09-23] MEDS: DIPHENHYDRAMINE 25 MG CAP PO SCH ×3 (03:11→15:11)
[2017-09-23] MEDS: METHYLPREDNISOLONE 125 MG INJ IV SCH (03:39)
[2017-09-23 08:14] LABS: BASOPHILS % 0.1 % (0.0-2.0); HEMATOCRIT 36.3 % (37.0-47.0); HEMOGLOBIN 12.6 g/dl (12.0-16.0); LYMPHOCYTES # 0.7 10^3/ul (0.8-2.9); LYMPHOCYTES % 4.9 % (15.0-51.0); MEAN CORPUSCULAR HGB CONC 34.7 g/dl (32.0-37.0); MEAN CORPUSCULAR VOLUME 86.4 fl (82.0-101.0); MEAN PLATELET VOLUME 10.6 fl (7.4-10.4); MONOCYTE # 0.5 10^3/ul (0.3-0.9); MONOCYTES % 3.6 % (0.0-11.0); NEUTROPHIL # 13.3 10^3/ul (1.6-7.5); NEUTROPHILS % 90.7 % (39.0-77.0); PLATELET COUNT 248 10^3/UL (140-415); RED CELL DISTRIBUTION WIDTH 11.6 % (11.5-14.5); WHITE BLOOD COUNT 14.7 10^3/ul (4.8-10.8)
[2017-09-23 08:28] LABS: CALCIUM 9.2 mg/dl (8.4-10.2); CREATININE 0.74 mg/dl (0.44-1.00)
[2017-09-23] MEDS ORDERED: INFLUENZA VIRUS VACCINE 0.5 ML SYG IM* ONE (09:00)
[2017-09-23] MEDS: LISINOPRIL 10 MG TAB PO SCH (09:12)
[2017-09-23] MEDS: FAMOTIDINE 20 MG INJ IV SCH (09:13)
[2017-09-23] MEDS: ENOXAPARIN 40 MG/0.4 ML SYG SC SCH (09:27)
--- NOTE | 2017-09-23 10:34 | PDOCDIS ---
Discharge Instructions CONDITION Patient Condition: Stable HOME CARE INSTRUCTIONS: Diet Instructions: Regular ACTIVITY: Activity Restrictions: Slowly Increase Activity FOLLOW UP/APPOINTMENTS Follow-up Plan Please take your medications as prescribed, if you experience any further throat swelling or facial swelling, please go to ER, call 911, or call your primary care doctor. AMEE MARTINS Sep 23, 2017 10:33
[2017-09-23] MEDS ORDERED: BEN25 PO (10:41)
--- NOTE | 2017-09-23 11:13 | DS ---
DATE OF ADMISSION: 09/19/2017 DATE OF DISCHARGE: 09/23/2017 HOSPITAL COURSE: The patient came in with tongue swelling and shortness of breath and drooling and some stridor, and she was seen by pulmonary team during this hospital stay, was admitted and had to be intubated secondary to severe angioedema, which required emergent intubation. Fortunately, there were no signs of anaphylactic shock. Patient was placed on steroids and H1 and H2 blockers as well. Her complement levels were checked, and they were normal. She apparently has taken LIA inhibitor at home but has been taking that for many years, so that was held on admission. Apparently 5 days prior to admission, patient was taking amoxicillin and Motrin and Benadryl following a recent oral surgery, so it is unclear if that was a triggering event. In any event, over the course of her hospital stay, her labs were checked to continue on steroids. Her symptoms were improving to the event that she was able to be extubated. She still had some mild swelling but was able to breathe well on room air. She worked with physical therapy as well, who recommended home health PT and front-wheel walker because she gets some weakness, but because the patient is clinically improved, she is tolerating diet, and her breathing symptoms have improved, she will be discharged home today in improved condition. Again, the cause of her angioedema is somewhat unclear as to whether this represents a histamine-mediated response versus one that is mast cell mediated, and obviously acquired C1 inhibitor deficiency may also be considered, although that is more common in older individuals. Patient will go home today in improved condition. She will go home with a steroid taper, prednisone 60 mg p.o. daily for 2 days, then 40 mg p.o. daily for 2 days, then 20 mg p.o. daily for 2 days. She will go home with EpiPen 0.3 mg/0.3 mL intramuscular p.r.n. hypersensitivity reaction, Benadryl 25 mg p.o. every 6 hours for 10 more days. She needs followup with her regular doctor in the clinic and has been instructed on return precautions. She will need follow up with her regular doctor in clinic in next 1 week. FINAL DIAGNOSES: 1. Stridor, drooling, shortness of breath, tongue swelling secondary to severe angioedema requiring intubation, now extubated and improving with unclear source. 2. Prior history of angioedema in the past in the last year. 3. Recent tooth surgery. Time spent on discharge of the patient: 45 minutes. Dictated By: Alex Pop MD /jim/sal /Document#: [id number] MTDD
[2017-09-23] MEDS ORDERED: METHYLPREDNISOLONE 125 MG INJ IV SCH (21:00)
[2017-09-23] MEDS ORDERED: FAMOTIDINE 20 MG TAB PO SCH (21:00)
== END 2017-09-23 19:10 | disposition home health service (06) | DRG 208 ==
LOC: E/R 17:09 → ICU 19:10 → TEL 09-22 06:11
PROVIDERS: ADMIT Internal Medicine; ATTEND Internal Medicine
PROC: 5A1945Z Respiratory Ventilation, 24-96 Consecutive Hours (ICD-10-PCS; principal; 2017-09-19)
PROC: 0BH17EZ Insertion of Endotracheal Airway into Trachea, Via Natural or Artificial Opening (ICD-10-PCS; 2017-09-19)
PROC: 30233L1 Transfusion of Nonautologous Fresh Plasma into Peripheral Vein, Percutaneous Approach (ICD-10-PCS; 2017-09-19)
DX: J96.01 Acute respiratory failure with hypoxia (principal); T78.3XXA Angioneurotic edema, initial encounter
CPT/HCPCS: 31500; 36430; 36600; 71010; 80048; 80053; 82550; 82553; 82803; 83605; 84484; 85025; 85651; 86140; 86160; 86332; 86850; 86900; 86901; 87081; 90686; 92610; 93005; 94002; 94003; 94664; 94770; 97116; 97161; J1200; J1650; J2060; J2250; J2310; J2930; J3010; J3480; J7040; P9059

== ENCOUNTER 2017-11-02 02:00 | Inpatient (IN) | payer MEDICAID ==
[~2017-11-02] VITALS: Ht 165.1 cm; Wt 72.0 kg
[2017-11-02] VITALS (11 sets, daily range): BP systolic 106–119; BP diastolic 67–74; PULSE 63–84; RESP 16–18; TEMP 97.4; Ht 165.1 cm; Wt 72.0 kg
[~2017-11-02 02:00] MED LIST changes: +BEN25 PO; -KETAMINE 500 MG INJ ONE; +LISI10TA2 PO; -PROPOFOL 200 MG INJ ONE; +SIMV10TA PO
[2017-11-02] MEDS ORDERED: SOD CHLORIDE 0.9% 1,000 ML IV STA (02:13)
[2017-11-02] MEDS ORDERED: FAMOTIDINE 20 MG INJ IV ONE (02:30)
[2017-11-02] MEDS ORDERED: DEXAMETHASONE 10 MG/ML 1 ML INJ IV ONE (02:30)
[2017-11-02] MEDS ORDERED: DIPHENHYDRAMINE 50 MG INJ IV ONE (02:30)
[2017-11-02] MEDS ORDERED: NICARDipine HCL 30 MG CAPSULE PO ONE (02:30)
--- NOTE | 2017-11-02 02:33 | ERD ---
ER Documentation Chief Complaint Chief Complaint tongue swelling x 1 hour, states possible allergic reaction HPI 36-year-old woman presents with right sided tongue and lip swelling 1 hour. She states last time she presented to the hospital with these symptoms she required emergent orotracheal intubation. She also has a history of hypertension and uses lisinopril. She denies chest pain or shortness of breath , no difficulty swallowing or speaking, no fevers or chills, no vomiting or diarrhea. ROS All systems reviewed and are negative except as per history of present illness. Medications Home Meds Active Scripts Diphenhydramine Hcl* (Benadryl*) 25 Mg Cap, 25 MG PO Q6H for 10 Days, #60 CAP Prov:BULL MARTINSAMEE S. 09/23/17 Reported Medications Simvastatin* (Zocor*) 10 Mg Tablet, 10 MG PO QHS, #30 TAB 09/19/17 Lisinopril* (Lisinopril*) 10 Mg Tablet, 10 MG PO DAILY, #30 TAB 09/19/17 Allergies Allergies: Coded Allergies: aspirin (Verified Allergy, Unknown, rash, 09/23/17) procaine (Unverified Allergy, Unknown, RASH, 09/23/17) Uncoded Allergies: NOVACAINE (Allergy, Unknown, rash, 09/23/17) PMhx/Soc Hypertension, dyslipidemia, previous angioedema requiring emergent orotracheal intubation History of Surgery: Yes (oral surgery and bone replacement ) Anesthesia Reaction: No Hx Neurological Disorder: No Hx Respiratory Disorders: No Hx Cardiac Disorders: No Hx Psychiatric Problems: No Hx Miscellaneous Medical Probl: Yes (see H&P) Hx Alcohol Use: No Hx Substance Use: No Hx Tobacco Use: No FmHx Family History: No diabetes Physical Exam Vitals Vital Signs Date Time Temp Pulse Resp B/P Pulse Ox O2 Delivery O2 Flow Rate FiO2 11/02/17 02:01 97.6 71 20 156/107 98 Physical Exam GENERAL: Well-developed, well-nourished, well-hydrated, in no apparent distress , looks nontoxic in appearance HEENT: Moist mucous membranes, pink conjunctiva, with glossal edema on the right as well as right upper and lower lid edema. Patient has no submandibular induration, no tracheal deviation NEURO: Alert and oriented 3, cranial nerves II through XII intact bilaterally, pupils equal round reactive to light, no focal deficits or facial asymmetry, sensation intact distally Strength 5/5 in upper and lower extremities bilaterally CARDIAC: Regular rate and rhythm, no murmurs rubs or gallops LUNGS: Clear bilaterally no wheezing crackles or stridor ABDOMEN: Soft nontender, no guarding, no rigidity, no rebound, no psoas sign no obturator sign. Normoactive bowel sounds SKIN: Warm and dry to touch, no abrasions, contusions, or hematomas, no lacerations, no ecchymosis, no target lesions, and without ulcers EXTREMITIES: No clubbing cyanosis or edema, calves are bilaterally symmetrical, no Homans sign, no popliteal cord sign. Distal pulses equal and bilateral PSYCH: Normal affect without agitation or irritability Result Diagram: 11/02/1724911/02/17249 Results 24 hrs Laboratory Tests Test 11/02/17 02:50 White Blood Count 8.110^3/ul Red Blood Count 4.4410^6/ul Hemoglobin 13.4g/dl Hematocrit 38.3% Mean Corpuscular Volume 86.3fl Mean Corpuscular Hemoglobin 30.2pg Mean Corpuscular Hemoglobin Concent 35.0g/dl Red Cell Distribution Width 12.2% Platelet Count 11985^3/UL Mean Platelet Volume 9.8fl Neutrophils % 65.1% Lymphocytes % 27.0% Monocytes % 6.8% Eosinophils % 0.7% Basophils % 0.2% Nucleated Red Blood Cells % 0.0/100WBC Neutrophils # 5.210^3/ul Lymphocytes # 2.210^3/ul Monocytes # 0.610^3/ul Eosinophils # 0.110^3/ul Basophils # 0.010^3/ul Nucleated Red Blood Cells # 0.010^3/ul Sodium Level 140mmol/L Potassium Level 3.6mmol/L Chloride Level 108mmol/L Carbon Dioxide Level 25mmol/L Anion Gap 11 Blood Urea Nitrogen 10mg/dl Creatinine 0.77mg/dl Glucose Level 91mg/dl Calcium Level 8.8mg/dl Total Bilirubin 0.4mg/dl Direct Bilirubin 0.00mg/dl Indirect Bilirubin 0.4mg/dl Aspartate Amino Transf (AST/SGOT) 17IU/L Alanine Aminotransferase (ALT/SGPT) 31IU/L Alkaline Phosphatase 65IU/L Troponin I < 0.012ng/ml Total Protein 6.8g/dl Albumin 3.9g/dl Globulin 2.90g/dl Albumin/Globulin Ratio 1.34 Lipase 96U/L Current Medications Medications (Trade) Dose Ordered Sig/Judy Route PRN Reason Start Time Stop Time Status Last Admin Dose Admin Sodium Chloride (NS) 1,000 ml @ 1,000 mls/hr Q1H STAT IV 11/02/17 02:13 11/02/17 03:12 DC 11/02/17 02:55 Dexamethasone (Decadron) 10 mg ONCE ONCE IV 11/02/17 02:30 11/02/17 02:31 DC 11/02/17 02:55 Famotidine (Pepcid Iv) 40 mg ONCE ONCE IV 11/02/17 02:30 11/02/17 02:31 DC 11/02/17 02:56 Diphenhydramine HCl (Benadryl) 25 mg ONCE ONCE IV 11/02/17 02:30 11/02/17 02:31 DC 11/02/17 02:56 Nicardipine HCl (Cardene) 30 mg ONCE ONCE PO 11/02/17 02:30 11/02/17 02:31 DC 11/02/17 02:56 Procedures/MDM IV line was established patient was placed on tube and manifold builder rhythm strip revealed a sinus rhythm at about 80 bpm with upright P and T waves. Patient was afebrile I administered 1 L normal saline intravenously, dexamethasone 10 mg IV 1, diphenhydramine 25 mg IV 1 and famotidine 40 mg IV 1 One AP view of the chest performed, read by me reveals no acute infiltrates, normal mediastinum, sharp costophrenic and cardiac borders, no air under the diaphragm. Otherwise unremarkable chest x-ray. CBC and electrolytes are normal, liver function tests are normal, troponin was negative. Patient was extremely hypertensive so I administered nicardipine 30 mg p.o. 1. Patient presented with significant angioedema to the right side of the tongue and lips, last time she was here she required emergent orotracheal intubation so she will be admitted to telemetry setting for continued medical management and observation. I told her to immediately discontinue her lisinopril and in the future avoid all LIA inhibitors and LIA receptor randy medication. Departure Diagnosis: Primary Impression: LIA inhibitor-aggravated angioedema Encounter type: initial encounter Qualified Code: T78.3XXA - Angiotensin converting enzyme inhibitor-aggravated angioedema, initial encounter Additional Impression: Hypertension Hypertension type: essential hypertension Qualified Code: I10 - Essential hypertension Condition: Fair GREGORY PARISH MD Nov 02, 2017 02:33
[2017-11-02 03:17] LABS: BASOPHILS % 0.2 % (0.0-2.0); EOSINOPHILS # 0.1 10^3/ul (0.0-0.5); EOSINOPHILS % 0.7 % (0.0-7.0); HEMATOCRIT 38.3 % (37.0-47.0); HEMOGLOBIN 13.4 g/dl (12.0-16.0); LYMPHOCYTES # 2.2 10^3/ul (0.8-2.9); MEAN CORPUSCULAR HEMOGLOBIN 30.2 pg (29.0-33.0); MEAN CORPUSCULAR VOLUME 86.3 fl (82.0-101.0); MEAN PLATELET VOLUME 9.8 fl (7.4-10.4); MONOCYTE # 0.6 10^3/ul (0.3-0.9); MONOCYTES % 6.8 % (0.0-11.0); NEUTROPHIL # 5.2 10^3/ul (1.6-7.5); NEUTROPHILS % 65.1 % (39.0-77.0); PLATELET COUNT 270 10^3/UL (140-415); RED BLOOD COUNT 4.44 10^6/ul (4.20-5.40); RED CELL DISTRIBUTION WIDTH 12.2 % (11.5-14.5); WHITE BLOOD COUNT 8.1 10^3/ul (4.8-10.8)
[2017-11-02 03:36] LABS: ALANINE AMINOTRANSFERASE 31 IU/L (13-69); ALBUMIN 3.9 g/dl (3.3-4.9); ALBUMIN/GLOBULIN RATIO 1.34; ALKALINE PHOSPHATASE 65 IU/L (42-121); ANION GAP 11 (8-16); ASPARTATE AMINO TRANSFERASE 17 IU/L (15-46); BILIRUBIN,INDIRECT 0.4 mg/dl (0-1.1); BILIRUBIN,TOTAL 0.4 mg/dl (0.2-1.3); BLOOD UREA NITROGEN 10 mg/dl (7-20); CALCIUM 8.8 mg/dl (8.4-10.2); CARBON DIOXIDE 25 mmol/L (21-31); CHLORIDE 108 mmol/L (97-110); CREATININE 0.77 mg/dl (0.44-1.00); GLUCOSE 91 mg/dl (70-220); POTASSIUM 3.6 mmol/L (3.5-5.1); SODIUM 140 mmol/L (135-144); TOTAL PROTEIN 6.8 g/dl (6.1-8.1)
[2017-11-02 03:54] LABS: TROPONIN-I < 0.012 ng/ml (0.00-0.12)
[2017-11-02] MEDS: SOD CHLORIDE 0.9% 1,000 ML IV SCH ×2 (04:34→17:25)
--- NOTE | 2017-11-02 04:44 | RADRPT ---
PROCEDURE: Chest. CLINICAL INDICATION: Chest pain. TECHNIQUE: Single frontal view of the chest was obtained. COMPARISON: 09/21/2017. FINDINGS: The cardiac silhouette is within normal limits. The aortic arch is unremarkable. There is no focal consolidation, vascular congestion or pleural effusion. There is no pneumothorax. IMPRESSION: No evidence for active cardiopulmonary disease. .Ralf Burrell MD, Date Time Electronically viewed and signed by .Ralf Burrell MD, on 11/02/2017 04:43 .T/
[2017-11-02] MEDS ORDERED: NACL 0.9% 3 ML SYG IV SCH (05:00)
[2017-11-02] MEDS ORDERED: ONDANSETRON 4 MG INJ IV PRN (05:00)
[2017-11-02] MEDS ORDERED: ACETAMINOPHEN 325 MG TAB PO PRN (05:00)
--- NOTE | 2017-11-02 08:27 | HP ---
Date/Time of Note Date/Time of Note DATE: 11/02/17 TIME: 08:15 Assessment/Plan VTE Prophylaxis VTE Prophylaxis Intervention: SCD's Lines/Catheters Urinary Cath still in place: No Assessment/Plan Chief Complaint/Hosp Course This is a 36-year-old female being admitted to the telemetry floor for: #1 angioedema: Likely secondary to lisinopril. Patient previously was admitted for angioedema. C1 inhibitor appears to be in normal range based on the lab report in the miscellaneous section. At the current time this likely appears to be secondary to patient's lisinopril this is the only medication she is taking. At the current time will discontinue this medication. She received Solu-Medrol Benadryl and Pepcid in the ED. Will admit her for observation. Will monitor her respiratory status. She was given nifedipine in the ED for her blood pressure. Likely will send her home on Norvasc. #2 hypertension we will discontinue lisinopril secondary to angioedema. She received a dose of nifedipine in the ED, will send her home on Norvasc. #3 hyperlipidemia: Patient currently is not taking a statin #4 DVT GI prophylaxis: SCDs, no GI prophylaxis indicated Further treatment strategy will be implemented for the clinical course Problems: HPI/ROS Admit Date/Time Admit Date/Time Nov 02, 2017 at 02:56 Hx of Present Illness 36-year-old woman presents with right sided tongue and lip swelling 1 hour. She states last time she presented to the hospital with these symptoms she required emergent orotracheal intubation. She also has a history of hypertension and uses lisinopril. She denies chest pain or shortness of breath , no difficulty swallowing or speaking, no fevers or chills, no vomiting or diarrhea. Allergies: Novocaine, aspirin, procaine Medications: Lisinopril ROS Const: As per HPI Eyes : No pain discharge or redness or change in visual acuity ENT: Per HPI Oral cavity: As per HPI Respiratory: No shortness of breath, cough, sputum, wheezing, or pleuritic pain Cardiovascular: No chest pain, palpitation, PND, or edema GI : no change in appetite, abdominal pain, nausea, vomiting, diarrhea, constipation, or change in the color his stool Genitourinary: No dysuria, hematuria, flank pain , discharge or CVA tenderness Musculoskeletal: No joint pain, back pain, neck pain, restricted range of motion in neck or joints Skin: No rash, bruising or hives Neuro: No headache, dizziness, syncope, seizure, focal weakness Endocrine: No polyuria, polydipsia, temperature intolerance Psych: No hallucination, depression, anxiety or suicidal ideation PMH/Family/Social Past Medical History Hypertension, hyperlipidemia Past Surgical History Past Surgical Hx: no surgical history Family History Significant Family History: no pertinent family hx Social History Alcohol Use: none Smoking Status: Never smoker Drug Use: none Exam/Review of Systems Vital Signs Vitals Vital Signs Date Time Temp Pulse Resp B/P Pulse Ox O2 Delivery O2 Flow Rate FiO2 11/02/17 07:53 97.9 63 18 106/68 98 11/02/17 03:51 Room Air Exam Exam General: Patient is well-developed well-nourished The patient is alert oriented -3 lying comfortably in bed. HEENT: Right lower lip swelling, right sided tongue swelling, Neck: Supple with full range of motion. No rigidity or meningismus, no stridor Chest: Nontender Lungs: Clear to auscultation bilaterally no crackles rales or wheezing, no acute respiratory distress Heart: Normal S1-S2, Regular rhythm and rate. No murmur, S3, or S4 Abdomen: Soft , nontender, nondistended , bowel sounds are present. No guarding no rebound tenderness , No masses or organomegaly. No costovertebral temporal angle mass Extremities: Normal to inspection, no edema no cyanosis Neurologic: Normal mental status, speech normal, cranial nerves II through XII are intact, motor and sensory are intact, no focal weakness Additional Comments PROCEDURE: Chest. CLINICAL INDICATION: Chest pain. TECHNIQUE: Single frontal view of the chest was obtained. COMPARISON: 09/21/2017. FINDINGS: The cardiac silhouette is within normal limits. The aortic arch is unremarkable. There is no focal consolidation, vascular congestion or pleural effusion. There is no pneumothorax. IMPRESSION: No evidence for active cardiopulmonary disease. .Ralf Burrell MD, MD Date Time Electronically viewed and signed by .Ralf Burrell MD, on 11/02/2017 04:43 .T/ CC: GREGORY PARISH MD Labs Result Diagram: 11/02/17 0250 11/02/17 0250 Medications Medications Current Medications Sodium Chloride (NS) 1,000 ml @ 80 mls/hr [id number] IV Last administered on 11/02t 04:34; Admin Dose 80 MLS/HR; Start 11/02/17 at 04:34 Ondansetron HCl (Zofran Inj) 4 mg Q6H PRN IV NAUSEA AND/OR VOMITING; Start 11/02/17 at 05:00 Acetaminophen (Tylenol Tab) 650 mg Q6H PRN PO PAIN LEVEL 1-3 OR FEVER; Start 11/02/17 at 05:00 ALLEN MANDUJANO Nov 02, 2017 08:25
[2017-11-02] MEDS: DIPHENHYDRAMINE 25 MG CAP PO SCH ×3 (08:49→20:30)
[2017-11-02] MEDS ORDERED: INFLUENZA VIRUS VACCINE 0.5 ML SYG IM* ONE (11:00)
[2017-11-02] MEDS ORDERED: DOCUSATE SODIUM 100 MG CAP PO PRN (13:30)
[2017-11-02] MEDS ORDERED: BISACODYL (EC) 5 MG TAB PO PRN (13:30)
--- NOTE | 2017-11-02 13:56 | PN ---
Date/Time of Note Date/Time of Note DATE: 11/02/17 TIME: 13:46 Assessment/Plan VTE Prophylaxis VTE Prophylaxis Intervention: SCD's Lines/Catheters IV Catheter Type (from Nrs): Saline Lock Urinary Cath still in place: No Assessment/Plan Assessment/Plan 36 yo F admitted following an episode of angioedma, suspect 2/2 josué inhibitor. Pt apparently has been on an acei for some time. She was on this, as well as a brief course of NSAIDs/PCN during her previous angioedema admission so it seems there was a lack of clarity regarding the culprit medication. Given that the only medication she's been on lately has been the acei, the acei is the most likely cause. Notes from pt's previous admit allude to a histamine v mast cell mediated process, less likely acquired c1 inhibitor deficiency PLAN cont to hold acei no indication for further steroids or Benadryl will place CM consult for outpatient allergy follow up if feeling well tomorrow, will send out. BP is ok and no compelling indication for Subjective 24 Hr Interval Summary Free Text/Dictation Pt feels much better today, states her mouth is much less swollen Exam/Review of Systems Vital Signs Vitals Vital Signs Date Time Temp Pulse Resp B/P Pulse Ox O2 Delivery O2 Flow Rate FiO2 11/02/17 12:29 73 11/02/17 11:58 98.1 18 117/74 98 11/02/17 03:51 Room Air Exam no mouth swelling no stridor lungs clear abd soft no rashes Results Result Diagram: 11/02/17 0250 11/02/17 0250 Results 24 hrs Laboratory Tests Test 11/02/17 02:50 White Blood Count 8.1 # Red Blood Count 4.44 Hemoglobin 13.4 Hematocrit 38.3 Mean Corpuscular Volume 86.3 Mean Corpuscular Hemoglobin 30.2 Mean Corpuscular Hemoglobin Concent 35.0 Red Cell Distribution Width 12.2 Platelet Count 270 Mean Platelet Volume 9.8 Neutrophils % 65.1 Lymphocytes % 27.0 Monocytes % 6.8 Eosinophils % 0.7 Basophils % 0.2 Nucleated Red Blood Cells % 0.0 Neutrophils # 5.2 Lymphocytes # 2.2 Monocytes # 0.6 Eosinophils # 0.1 Basophils # 0.0 Nucleated Red Blood Cells # 0.0 Sodium Level 140 Potassium Level 3.6 Chloride Level 108 Carbon Dioxide Level 25 Anion Gap 11 Blood Urea Nitrogen 10 Creatinine 0.77 Glucose Level 91 Calcium Level 8.8 Total Bilirubin 0.4 Direct Bilirubin 0.00 Indirect Bilirubin 0.4 Aspartate Amino Transf (AST/SGOT) 17 Alanine Aminotransferase (ALT/SGPT) 31 Alkaline Phosphatase 65 Troponin I < 0.012 Total Protein 6.8 Albumin 3.9 Globulin 2.90 Albumin/Globulin Ratio 1.34 Lipase 96 Medications Medications Current Medications Sodium Chloride (NS) 1,000 ml @ 80 mls/hr [id number] IV Last administered on 11/02 04:34; Admin Dose 80 MLS/HR; Start 11/02/17 at 04:34 Ondansetron HCl (Zofran Inj) 4 mg Q6H PRN IV NAUSEA AND/OR VOMITING; Start 11/02/17 at 05:00 Acetaminophen (Tylenol Tab) 650 mg Q6H PRN PO PAIN LEVEL 1-3 OR FEVER; Start 11/02/17 at 05:00 Diphenhydramine HCl (Benadryl) 25 mg Q6H PO Last administered on 11/02/17 13: 41; Admin Dose 25 MG; Start 11/02/17 at 08:30 Docusate Sodium (Colace) 100 mg BID PRN PO CONSTIPATION; Start 11/02/17 at 13: 30 Bisacodyl (Dulcolax) 10 mg DAILY PRN PO CONSTIPATION Last administered on 13:41; Admin Dose 10 MG; Start 11/02/17 at 13:30 ASHLEY SALINAS MD Nov 02, 2017 13:56
[2017-11-03] VITALS (10 sets, daily range): BP systolic 103–137; BP diastolic 63–87; PULSE 53–89; RESP 17–18
[2017-11-03] MEDS: DIPHENHYDRAMINE 25 MG CAP PO SCH ×3 (02:30→14:32)
[2017-11-03] MEDS: SOD CHLORIDE 0.9% 1,000 ML IV SCH (05:34)
--- NOTE | 2017-11-03 10:16 | PDOCDIS ---
Discharge Instructions DIAGNOSIS Discharge Diagnosis 1. Angioedema secondary to lisinopril HOME CARE INSTRUCTIONS: Diet Instructions: Low Fat /Cholesterol FOLLOW UP/APPOINTMENTS Follow-up Plan 1. Follow up with your primary care provider in one week JACK PACE Nov 03, 2017 10:16
[2017-11-03 12:41] LABS: CHOL/HDL RATIO 5.4 RATIO
[2017-11-03] MEDS ORDERED: ATOR40TA68 PO (16:01)
[2017-11-03] MEDS ORDERED: AMLO2.5T78 PO (16:12)
== END 2017-11-03 17:36 | disposition home or self-care (01) | DRG 916 ==
LOC: E/R 02:00 → MS4 02:56
PROVIDERS: ADMIT Family Medicine; ATTEND Family Medicine
DX: T78.3XXA Angioneurotic edema, initial encounter (principal); I10 Essential (primary) hypertension; T88.8XXA Other specified complications of surgical and medical care, not elsewhere classified, initial encounter; E78.5 Hyperlipidemia, unspecified
CPT/HCPCS: 36415; 71010; 80053; 80061; 83036; 83690; 84484; 85025; 90686; 93005; 96374; 96375; J1100; J1200; J7030

== ENCOUNTER 2018-07-21 10:38 | Emergency (ER) | END 2018-07-21 11:36 | disposition left against medical advice (07) ==

== ENCOUNTER 2018-11-29 20:14 | Emergency (ER) | payer OTHER ==
[~2018-11-29] VITALS: Ht 165.1 cm; Wt 73.8 kg
[~2018-11-29 20:14] MED LIST changes: -BEN25 PO; +HYDR-842 PO; -LISI10TA2 PO; +PRED20TA PO; -SIMV10TA PO
[2018-11-29 20:18] VITALS: Ht 165.1 cm; Wt 73.8 kg
[2018-11-29] MEDS ORDERED: predniSONE 20 MG TAB PO ONE (21:00)
[2018-11-29] MEDS ORDERED: FAMOTIDINE 20 MG TAB PO ONE (21:00)
[2018-11-29] MEDS ORDERED: DIPHENHYDRAMINE 25 MG CAP PO ONE (21:00)
--- NOTE | 2018-11-29 21:07 | ERD ---
ER Documentation Chief Complaint Chief Complaint states feels throat is swelling x 3 hours. lungs clear. HPI This is a 37-year-old female with a past medical history of hypertension, hyperl ipidemia, allergies who is presenting with several days of a itchy throat that she felt has been progressively more swollen. Her tongue was not swollen. Despite having the itchy throat, the patient is still able to swallow without issue. She has not had any drooling episodes. She has not had any changes to her voice. She denies any wheezing. She has not had any trouble with b reathing, but she was concerned about her throat closing and wanted to be evaluated. The patient has been with friends and family that have had pets recently. She endorses having significant allergies and this happening in the past. The last time this happened, she was evaluated here. She was given steroids and hydroxyzine with significant improvement of her symptoms. The negro ent reports a possible history of angioedema. She has had her tongue swollen in the past. She reports that the symptoms over the last few days are not not like this. The patient denies feeling sick recently. The patient denies fever or chills. The patient has had no headache or vision changes. The patient does not endorse neck or back pain. The patient denies lightheadedness or dizziness. The patient has had no chest pain or trouble breathing. The patient denies nausea or vomiting. The patient denies abdominal pain. The patient denies changes to bowel movements or urination. The patient has had no focal deficits. The patient has had no weakness or numbness or tingling to the face or extremities. ROS All systems reviewed and are negative except as per history of present illness. Medications Home Meds Active Scripts Hydroxyzine Hcl* (Atarax*) 25 Mg Tab, 25 MG PO Q6H PRN for ITCHING, #20 TAB Prov:EFRAIN NEFF MD 08/09/18 Prednisone* (Prednisone*) 20 Mg Tab, 40 MG PO DAILY for 4 Days, TAB Prov:EFRAIN NEFF MD 08/09/18 Allergies Allergies: Coded Allergies: LIA Inhibitors (Verified Allergy, Severe, angioedema, 08/09/18) hospitalized 12.17 for angioedema from lisinopril aspirin (Verified Allergy, Unknown, rash, 08/09/18) procaine (Unverified Allergy, Unknown, RASH, 08/09/18) Uncoded Allergies: NOVACAINE (Allergy, Unknown, rash, 09/23/17) PMhx/Soc History of Surgery: Yes Anesthesia Reaction: No Hx Neurological Disorder: No Hx Respiratory Disorders: No Hx Cardiac Disorders: Yes (HTN, HIGH CHOLESTEROL) Hx Psychiatric Problems: No Hx Miscellaneous Medical Probl: Yes (allergies) Hx Alcohol Use: Yes (EVERY WEEKEND HALF BOTTLE OF TEQUILA ) Hx Substance Use: No Hx Tobacco Use: Yes Smoking Status: Current every day smoker FmHx Family History: No diabetes Physical Exam Vitals Vital Signs Date Temp Pulse Resp B/P (MAP) Pulse Ox O2 O2 Flow FiO2 Time Delivery Rate 11/29/18 99.2 77 18 185/95 99 20:18 (125) Physical Exam Const: No apparent distress, well-developed, well-nourished Head: Normocephalic, Atraumatic Eyes: Normal Conjunctiva. Extraocular movements intact. Pupils equal, round and reactive to light ENT: Normal External Ears, Nose and Mouth. Neck: Full range of motion. No meningismus. Resp: Clear to auscultation bilaterally, No wheezes, rales or rhonchi Cardio: Regular rate and rhythm. No murmurs, rubs or gallops Abd: Soft, non tender, non distended. Normal bowel sounds Skin: No petechiae or rashes Back: No midline tenderness. No CVA tenderness Ext: No cyanosis, or edema Neur: Awake and alert, oriented 4. Cranial nerves intact. No facial droop. Normal strength, sensation and coordination. Psych: Normal Mood and Affect Results 24 hrs Current Medications Medications Dose Sig/Judy Start Time Status Last (Trade) Ordered Route PRN Stop Time Admin Dose Reason Admin Prednisone 60 mg ONCE ONCE 11/29/18 (Prednisone) PO 21:00 11/29/18 21:01 25 mg ONCE ONCE 11/29/18 Diphenhydrami PO 21:00 ne HCl 11/29/18 (Benadryl) 21:01 Famotidine 20 mg ONCE ONCE 11/29/18 (Pepcid) PO 21:00 11/29/18 21:01 Procedures/MDM MDM The patient's presentation warrants further investigation. Previous medical records, if available, were reviewed. The patient presents for a itchy throat. I do anticipate an allergic reaction, but I have low suspicion for anaphylaxis or angioedema. The patient does not have any obvious submandibular edema. Her tongue is not swollen. Her oropharynx is clear and her airway is patent. She does not have any wheezing or stridor. I have very low suspicion for airway involvement. TREATMENT/DISPOSITION The patient was treated with prednisone, Benadryl and Pepcid in the emergency department with improvement of her symptoms. Upon reevaluation of the patient, symptoms have improved. No emergent diagnoses were identified. At this time, I feel that the patient stable for discharge. The patient was instructed to follow-up with a primary care physician in 1-3 days. The patient will be given strict precautions with which to return to the emergency department. Prescriptions: Prednisone, hydroxyzine, Pepcid The patient's blood pressure was elevated at greater than 120/80 while in the emergency department. The patient was otherwise stable with no evidence of hypertensive urgency or emergency. The patient does not require admission for blood pressure control. I have discussed with the patient the risks of hypertension. I have instructed the patient to return to the ER for any new or worsening symptoms including chest pain, shortness of breath, headache, blurred vision, confusion, nausea, vomiting or LOC. I have advised the patient to follow up with the primary care physician for outpatient monitoring and treatment for hypertension in 1-3 days. Disclaimer: Inadvertent spelling and grammatical errors are likely due to EHR/dictation software use and do not reflect on the overall quality of patient care. Note that the electronic time recorded on this note does not necessarily reflect the actual time of the patient encounter. Departure Diagnosis: Primary Impression: Allergic reaction Encounter type: initial encounter Qualified Codes: T78.40XA - Allergy, unspecified, initial encounter Additional Impression: Throat irritation Condition: ALECIA Benites MD Nov 29, 2018 21:07
[2018-11-29] MEDS ORDERED: PRED20TA PO (21:12)
[2018-11-29] MEDS ORDERED: FAMO20TA18 PO (21:12)
[2018-11-29] MEDS ORDERED: HYDR-843 PO (21:12)
[2018-11-29 21:50] VITALS: BP 164/106; PULSE 67; RESP 18
== END 2018-11-29 21:50 | disposition home or self-care (01) ==
LOC: E/R 20:14
DX: R07.0 Pain in throat (principal); I10 Essential (primary) hypertension; F17.210 Nicotine dependence, cigarettes, uncomplicated
CPT/HCPCS: J7512; Z7502; Z7610; 99283